=== PATIENT | male | born 1990 | race Caucasian/White ===

== ENCOUNTER 2016-03-06 17:44 | Emergency (ER) | payer OTHER | END 2016-03-06 19:30 | disposition left against medical advice (07) | LOC: ER 17:44 | DX: Z53.21 Procedure and treatment not carried out due to patient leaving prior to being seen by health care provider (principal) ==

== ENCOUNTER 2016-03-06 22:37 | Emergency (ER) | payer SELFPAY | END 2016-03-07 03:30 | disposition home or self-care (01) | LOC: ER 22:37 | DX: S46.812A Strain of other muscles, fascia and tendons at shoulder and upper arm level, left arm, initial encounter (principal); S46.811A Strain of other muscles, fascia and tendons at shoulder and upper arm level, right arm, initial encounter; V49.49XA Driver injured in collision with other motor vehicles in traffic accident, initial encounter; Y92.488 Other paved roadways as the place of occurrence of the external cause ==